=== PATIENT | male | born 1980 | race Caucasian/White ===

== ENCOUNTER → 2020-05-16 | Outpatient (CLI) | payer BC ==
[~2020-05-16] VITALS: Ht 172 cm; Wt 117.0 kg
[~2020-05-16] MED LIST: ASPI-999 PO; ASPIRIN 325 MG (5 GR) TABLET ONE; EPTIFIBATIDE BOLUS 20 ML IV ONE; HEParin 1000 UNIT/ML (10ML VIAL) FOR BOLUS ONE; METO-351 PO; NITRO DRIP 25000 MCG/D5W 250 ML IV ONE; PANT40SU PO; REGADENOSON 0.4 MG/5 ML SYR (LEXISCAN) IV ONE; TICAGRELOR 90 MG TABLET (BRILINTA) PO ONE
[2020-05-16] MEDS: CATHETER FLUSH 10 ML SYR IV PRN ×2 (11:10→13:40)
[2020-05-16 13:28] VITALS: BP 128/81
--- NOTE | 2020-05-16 16:02 | Cardiology Stress Test Report ---
Stress Test Report Date of Procedure/Referring: Date of Procedure: May 16, 2020 PCP Kem Jacobo MD Admitting Physician Indications: Chest pain Baseline Heart Rate: 56 Baseline Blood Pressure: Blood Pressure Systolic: 128 Blood Pressure Diastolic: 81 Baseline Vitals Vital Signs Date Time Temp Pulse Resp B/P (MAP) Pulse Ox O2 Delivery O2 Flow Rate FiO2 05/16/20 13:28 56 16 128/81 (97) 98 Room Air Baseline EKG: Baseline EKG: normal sinus rhythm Summary After explaining the procedure to the patient, he signed a consent and then brought to the stress nuclear laboratory. Patient received a resting dose of technetium Myoview then started exercising on standard Daniel protocol. He was able to exercise for a total of 8 minutes on Daniel protocol, 9.5 metastases achieving maximum heart rate of 120 which is 67 percent of maximum expected heart rate minimal nondiagnostic EKG changes. Test was converted to Lexiscan. Patient received 0.4 mg Lexiscan for stress test, ECG, heart rate and blood pressure were monitored continuously. Resting and stress dose of radio tracer were injected, imaging was acquired and reviewed in short axis, horizontal long axis and vertical long axis views. TID: 1.26 SSS: 30 SDS: 25 EF: 60 1. Good exercise tolerance for total of 8 minutes on standard Daniel protocol achieving 67 percent of maximum expected heart rate did not reach his target heart rate test was converted to Lexiscan Myoview stress test 2. Patient tolerated Lexiscan well 3. Reversible ischemia involving the mid to apical anterior wall anterolateral wall and anterior septum and mid to apical inferior wall and true apex 4. Transient ischemic dilatation with a value 1.26 5. Normal left ventricular size with normal contractibility, EF 60 percent KEM JACOBO MD May 16, 2020 16:02
== END ==
LOC: CARD 10:39
PROVIDERS: ATTEND Internal Medicine Cardiovascular Disease
DX: I10 Essential (primary) hypertension (principal); R07.9 Chest pain, unspecified; R06.00 Dyspnea, unspecified
CPT/HCPCS: 78452; 93017; 93306; A9502

== ENCOUNTER 2020-05-18 09:00 | Day surgery (SDC) | payer BC ==
[~2020-05-18] VITALS: Ht 172 cm; Wt 115.7 kg
[2020-05-18] VITALS (13 sets, daily range): BP systolic 102–125; BP diastolic 62–85
[2020-05-18 07:27] LABS: HEMOGLOBIN 15.5 g/dL (13.3-17.7); MEAN PLATELET VOLUME 11.6 fL (9.0-12.2); WHITE BLOOD COUNT 9.5 10^3/uL (4.3-11.0)
[2020-05-18 07:35] LABS: INR 0.9 (0.8-1.4); PROTHROMBIN TIME PATIENT 12.4 SEC (12.2-14.7)
[2020-05-18 07:41] LABS: ALBUMIN 4.5 GM/DL (3.2-4.5); BILIRUBIN,TOTAL 0.8 MG/DL (0.1-1.0); CALCIUM 9.5 MG/DL (8.5-10.1); CREATININE SERUM 1.36 MG/DL (0.60-1.30); POTASSIUM 4.2 MMOL/L (3.6-5.0); TOTAL PROTEIN 8.5 GM/DL (6.4-8.2)
--- NOTE | 2020-05-18 07:43 | Diagnostic Imaging Report ---
INDICATION: Hypertension, chest pain and preop screening. No prior examinations are available for comparison. FINDINGS: The heart size, mediastinal configuration, and pulmonary vascularity are within normal limits. There is no pleural effusion, pneumothorax, or pneumonia. The osseous structures are unremarkable. IMPRESSION: No acute cardiopulmonary abnormality. Dictated by: Dictated on workstation # [id number]
[~2020-05-18 09:00] MED LIST changes: -ASPIRIN 325 MG (5 GR) TABLET ONE; -EPTIFIBATIDE BOLUS 20 ML IV ONE; +HEParin (CATH LAB) 2,000 ML IV ONE; -HEParin 1000 UNIT/ML (10ML VIAL) FOR BOLUS ONE; +LIDOCAINE 1% INJ 20 ML 20 ML VIAL ONE; +MIDAZOLAM 5 MG/5 ML (VERSED) VIAL ONE; -NITRO DRIP 25000 MCG/D5W 250 ML IV ONE; +NS IV 1000 ML 1,000 ML IV SCH; +NS IV 1000 ML 1,000 ML ONE; -REGADENOSON 0.4 MG/5 ML SYR (LEXISCAN) IV ONE; -TICAGRELOR 90 MG TABLET (BRILINTA) PO ONE; +fentaNYL INJECTION 100 MCG/2 ML AMP ONE
--- NOTE | 2020-05-18 10:05 | Cardiac Procedure Note-CS/ASA ---
Pre-Procedure Note Pre-Op Procedure Note H&P Reviewed The H&P was reviewed, patient examined and no changes noted. Date H&P Reviewed: May 18, 2020 Time H&P Reviewed: 09:00 Conscious Sedation Pre-Proced Time 09:00 ASA Score 3 For ASA 3 and 4: Consider anesthesia and medical clearance. Also, for patients with a history of failed moderate sedation consider anesthesia. Airway Lungs Heart ASA score ASA 1: a normal healthy patient ASA 2: a patient with a mild systemic disease (mid diabetes, controlled hypertension, obesity x ASA 3: a patient with a severe systemic disease that limits activity (angina, COPD, prior Myocardial infarction) ASA 4: a patient with an incapacitating disease that is a constant threat to life (CHF, renal failure) ASA 5: a moribund patient not expected to survive 24 hrs. (ruptured aneurysm) ASA 6: a declared brain- patient whose organs are being harvested. For emergent operations, add the letter E after the classification Mallampati Classification Grade 3 Sedation Plan Analgesia, Amnesia, Plan communicated to team members, Discussed options with patient/fam, Discussed risks with patient/fam The patient is an appropriate candidate to undergo the planned procedure, sedation, and anesthesia. The patient immediately re-assessed prior to indication. KEM MARTINEZ MD May 18, 2020 10:05
[2020-05-18] MEDS ORDERED: PATIENT MAY USE OWN MEDS, ALL PO SCH (10:15)
--- NOTE | 2020-05-18 10:20 | NUR ---
arrives to room 510 per bed, accompanied by laborer electroplating RN. AWAKE, PAIN FREE, SPEECH IS CLEAR, REPORTS HE IS WITH 4 KIDS. RIGHT GROIN WITH CLEAN DRY DRESSING OVER CATH SITE. NO DRAINAGE, NO ECCHYMOSIS, NO INDURATION. RIGHT FOOT IS WARM. RIGHT D.P. NOT STRONG BUT PRESENT. VS STABLE. PINK, WARM ET DRY, SINUS BRADYCARDIA. 1030 TELE ON. T WAVE INVERTED ON ROOM AIR. SPO2 IS NOW 100%. RESPS EVEN, UNLABORED, PAIN FREE.
--- NOTE | 2020-05-18 10:20 | Cardiac Cath Report ---
Cardiac Cath Report Physician (s)/[place] Pantograph Machine Operator (s) Physician KEM MARTINEZ MD Pre-Procedure Diagnosis Pre-Procedure Diagnosis: unstable angina Post-Procedure Note Procedure Start Date: May 18, 2020 Name of Procedure: Left heart catheterization Stent to the LAD Findings/Procedure Note PROCEDURE NOTE: 40 years old gentleman with history of hypertension, has been having unstable angina, had abnormal stress test, scheduled for cardiac catheterization possible PTCA. After explaining the procedure to the patient, all pros and cons were explained, all questions were answered. The patient signed the consent and then he was placed on the cardiac catheterization laboratory. Groin was prepped SL fashion local anesthesia was used. Sheath placed in the right femoral artery. Sailaja right and left catheter were used to access the coronary system. Sailaja right catheter was prolapsed of the left ventricle, pressure was measured no left ventricular gram was done. Next Patient was noted to have severe stenosis/subtotal occlusion the proximal LAD. 6000 units of heparin, double bolus Integrilin was done then SL guide was used, BMW wire was advanced in the LAD. Predilatation with 2.5 x 15 mm balloon then deployment of Steffany 2.5 x 18 mm deployed up to 2.71 mm in the proximal LAD across the first diagonal with excellent results. No residual stenosis was noted, distal to the stent there is mild irregularity improved after nitroglycerin intracoronary At the end of the procedure the sheath was removed. Closure device was deployed FINDINGS: Hemodynamics LV 111/12, end-diastolic pressure of 12 Aorta 115/73 mean of 89 ANATOMY: Left Main is trifurcating with no obstructive disease Left Anterior Descending has severe stenosis/subtotal occlusion proximally, successful deployment of Steffany 2.5 x 18 mm expanded to 2.71 mm extending close to the ostium of the LAD with excellent results Ramus intermedius/high obtuse marginal has mild disease nonobstructive disease Left Circumflex is moderate in size with no obstructive disease Right Coronory Artery is dominant artery with no obstructive disease LV Gram was not done, pressure was measured CONCLUSION: 1. Severe stenosis/subtotal occlusion in the proximal LAD was successful stenting using Steffany drug-eluting stent 2.5 x 18 mm expanded to 2.71 mm with excellent results, mild disease beyond the stent improved after nitroglycerin injection 2. Otherwise mild coronary artery disease nonobstructive disease 3. Normal left ventricular end-diastolic pressure DISCUSSION AND RECOMMENDATION: Patient has normal lipids, due to his severe proximal LAD stenosis and decided to proceed with initiating Lipitor in addition he was started with aspirin and Brilinta Anesthesia Type: Conscious Sedation Estimated blood loss (mL): 25 ml Contrast Amount: 73 ml Total Radiation Dose: 1046 mGy Post-Procedure Diagnosis Post-operative diagnosis: Unstable angina Coronary artery disease Hypertension Obesity KEM MARTINEZ MD May 18, 2020 10:19 am
--- NOTE | 2020-05-18 11:10 | NUR ---
VS STABLE. STATES, "NO ALLERGIES".
[2020-05-18] MEDS: CATHETER FLUSH 10 ML SYR IV SCH (14:20)
[2020-05-18] MEDS: NS IV 1000 ML 1,000 ML IV SCH ×2 (14:57→16:20)
--- NOTE | 2020-05-18 15:34 | NUR ---
Pt is Yazdanism. Music Critic provided prayer and Communion.
--- NOTE | 2020-05-18 16:13 | NUR ---
PT REPORTING, "I AM ACTUALLY FEELING BETTER SINCE THE PROCEDURE!" Roxann SALCIDO.
--- NOTE | 2020-05-18 16:29 | NUR ---
REPORT GIVEN TO LUCRECIA LOUIS.
[2020-05-18] MEDS: TICAGRELOR 90 MG TABLET (BRILINTA) PO SCH (21:15)
[2020-05-19] VITALS: BP 136/83
[2020-05-19 03:10] LABS: HEMOGLOBIN 14.1 g/dL (13.3-17.7); MEAN PLATELET VOLUME 10.7 fL (9.0-12.2); WHITE BLOOD COUNT 9.4 10^3/uL (4.3-11.0)
[2020-05-19 03:27] LABS: CHLORIDE 106 MMOL/L (98-107); POTASSIUM 3.9 MMOL/L (3.6-5.0); SODIUM 138 MMOL/L (135-145)
[2020-05-19 03:28] LABS: CALCIUM 9.3 MG/DL (8.5-10.1)
[2020-05-19 03:29] LABS: GLUCOSE 88 MG/DL (70-105)
[2020-05-19 03:30] LABS: CARBON DIOXIDE 21 MMOL/L (21-32)
[2020-05-19 03:32] LABS: CREATININE SERUM 1.22 MG/DL (0.60-1.30); GFR ESTIMATED > 60
[2020-05-19 03:33] LABS: BUN/CREATININE RATIO 16
[2020-05-19 04:45] VITALS: BP 104/66
[2020-05-19] MEDS: NS IV 1000 ML 1,000 ML IV SCH (05:13)
[2020-05-19] MEDS: CATHETER FLUSH 10 ML SYR IV SCH (05:13)
[2020-05-19] MEDS ORDERED: ATOR10TA66 PO (07:41)
[2020-05-19] MEDS ORDERED: TICA90TA PO (07:41)
--- NOTE | 2020-05-19 07:42 | Discharge Inst-Post CATH ---
Discharge Inst-CATH/EP Problems Reviewed?: Yes Post Cardiac Cath/EP D/C Inst Follow Up/Plan Appointment with Dr Jacobo in 2-4 weeks <b>CARDIAC CATH/EP PROCEDURE DISCHARGE INSTRUCTIONS</b> ACTIVITY * Go Home directly and rest. * Limit activity of the leg (or wrist if it was used) for 7 days including aerobics, swimming, jogging, bicycling, etc. * Restrict stair-climbing for 7 days if possible, if not, climb up with your non-cath leg, then bring together on the same step. * Avoid lifting, pushing, pulling or excessive movement of the affected extremity for 7 days. * Customary sexual activity may be resumed after 2 days-use caution not to use a position that strains or causes pain to the affected extremity. * No driving for 24 hours. * NO SMOKING. * Avoid straining for bowel movements for 7 days. * Gentle walking on level ground is allowed. * Returning to work will depend on the type of procedure and the results. Your doctor will discuss this with you. CALL YOUR DOCTOR FOR ANY OF THE FOLLOWING: *If bleeding from the puncture site occurs- Apply gentle pressure to site with clean cloth and call your doctor or EMS. * If a knot or lump forms under the skin, increases in size, or causes pain. * If bruising appears to be worsening or moving further down your leg instead of disappearing. * Temperature above 101 F. CARE OF YOUR GROIN INCISION; * Bruising or purple discoloration of the skin near the puncture site is common. * You may shower only, no bathtub bathing for 5 days. Be careful to avoid slipping as your leg may feel stiff. * If a closure device was used on your femoral artery, please see the attached guide regarding care of the device and your leg. * Leave dressing on FOR 24 hours. CARE OF YOUR WRIST INCISION; * Bruising or purple discoloration of the skin near the puncture site is common. * You may shower. * DO NOT submerge wrist. * Leave dressing on FOR 24 hours. KEM JACOBO MD May 19, 2020 07:42
[2020-05-19] MEDS: TICAGRELOR 90 MG TABLET (BRILINTA) PO SCH (08:10)
[2020-05-19 08:20] VITALS: BP 106/64
--- NOTE | 2020-05-19 08:23 | NUR ---
RESTING IN BED, RIGHT GROIN DRESSING DRY AND INTACT, NO HEMATOMA, DENIES CHEST PAIN OR SOB, APPETITE GOOD, CALL LIGHT WITHIN REACH
[2020-05-19] MEDS ORDERED: ASPIRIN E.C. 81 MG (ECOTRIN) TAB PO SCH (09:00)
[2020-05-19] MEDS ORDERED: NON-FORMULARY MEDICATION 1 EA EA (Pantoprazole Sodium (Protonix) 40 MG) PO SCH (09:00)
[2020-05-19] MEDS ORDERED: PANTOPRAZOLE 40 MG (PROTONIX) TAB PO SCH (09:00)
[2020-05-19 09:30] VITALS: BP 106/64
--- NOTE | 2020-05-19 09:44 | Cardiology Progress Note ---
Subjective Date Seen by Provider: May 19, 2020 Time Seen by Provider: 09:43 Subjective/Events-last exam Patient is laying down in bed, feeling better. Groin is healing well Review of Systems General: No Chills, No Night Sweats, No Fatigue, No Malaise, No Appetite, No Other HEENT: No Head Aches, No Visual Changes, No Eye Pain, No Ear Pain, No Dysphasia, No Sinus Congestion, No Post Nasal Drip, No Sore Throat, No Other Pulmonary: No Dyspnea, No Cough, No Pleuritic Chest Pain, No Other Cardiovascular: No: Chest Pain, Palpitations, Orthopnea, Paroxysmal Noc. Dyspnea, Edema, Lt Headedness, Other Objective-Cardiology Exam Last Set of Vital Signs Vital Signs 05/19/20 05/19/20 08:20 08:21 Temp 35.8 Pulse 58 Resp 18 B/P (MAP) 106/64 (78) Pulse Ox 96 O2 Delivery Room Air Capillary Refill : Less Than 3 Seconds I&O Intake and Output 05/18/20 23:59 Intake Total 2460 ml Output Total 475 ml Balance 1985 ml Intake Oral 1450 ml IV Total 1010 ml Output Urine Total 475 ml # Voids 4 General: Alert, Oriented X3, Cooperative HEENT: Atraumatic, PERRLA Neck: Supple, No JVD, No Thyromegaly Lungs: Clear to Auscultation, Normal Air Movement Heart: Regular Rate, Normal S1, Normal S2, No Murmurs Abdomen: Normal Bowel Sounds, Soft, No Tenderness, No Hepatosplenomegaly, No Masses Extremities: No Clubbing, No Cyanosis, No Edema, Normal Pulses, No Tenderness/Swelling Skin: No Rashes, No Breakdown, No Significant Lesion Neuro: Normal Gait, Normal Speech, Strength at 5/5 X4 Ext, Normal Tone, Sensation Intact Psych/Mental Status: Mental Status NL, Mood NL Results Lab Laboratory Tests 05/19/20 02:35 A/P-Cardiology Admission Diagnosis Coronary artery disease Unstable angina Hypertension Hyperlipidemia Assessment/Plan Coronary artery disease, status post stenting to the LAD using 2.5 x 18 mm Steffany drug-eluting stent expanded to 2.71 and the proximal LAD with excellent results, mild disease otherwise Unstable angina, reporting improvement. Continue to monitor Hypertension, good control on metoprolol. Continue to monitor Hyperlipidemia, educated in length about diet. Started on Lipitor 10 mg daily and will monitor tolerance and response KEM MARTINEZ MD May 19, 2020 9:44 am
== END 2020-05-19 09:30 | disposition home or self-care (01) ==
LOC: CATH 09:00 → CSD 14:43 → CATH 05-19 09:30
PROVIDERS: ATTEND Internal Medicine Cardiovascular Disease
DX: I25.110 Atherosclerotic heart disease of native coronary artery with unstable angina pectoris (principal); I10 Essential (primary) hypertension; E78.5 Hyperlipidemia, unspecified; E66.9 Obesity, unspecified; Z79.82 Long term (current) use of aspirin; Z79.899 Other long term (current) drug therapy; Z68.39 Body mass index [BMI] 39.0-39.9, adult; Z11.2 Encounter for screening for other bacterial diseases
CPT/HCPCS: 71045; 80048; 80053; 80061; 85027 ×2; 85347; 85610; 85730; 87081; 93005; 93458; C1725; C1760; C1769; C1874; C1887; C1894; C9600; 36415

== ENCOUNTER → 2022-07-16 | Outpatient (CLI) | payer BC ==
[~2022-07-16] VITALS: Ht 172 cm; Wt 113.0 kg
[~2022-07-16] MED LIST changes: +ATOR10TA66 PO; +CATHETER FLUSH 10 ML SYR IVP PRN; -HEParin (CATH LAB) 2,000 ML IV ONE; -LIDOCAINE 1% INJ 20 ML 20 ML VIAL ONE; -MIDAZOLAM 5 MG/5 ML (VERSED) VIAL ONE; -NS IV 1000 ML 1,000 ML IV SCH; -NS IV 1000 ML 1,000 ML ONE; +TICA90TA PO; -fentaNYL INJECTION 100 MCG/2 ML AMP ONE
[2022-07-16 13:01] VITALS: BP 119/81
--- NOTE | 2022-07-16 14:54 | Cardiology Stress Test Report ---
Stress Test Report Date of Procedure/Referring: Date of Procedure: Jul 16, 2022 PCP No,Local Physician Admitting Physician Admitting Physician: Attending Physician: Kem Jacobo MD Baseline Heart Rate: 60 Baseline Blood Pressure: Blood Pressure Systolic: 119 Blood Pressure Diastolic: 81 Vital Signs Date Time Temp Pulse Resp B/P (MAP) Pulse Ox O2 Delivery O2 Flow Rate FiO2 07/16/22 13:01 60 119/81 (94) 97 Baseline Vital Signs Vital Signs Date Time Temp Pulse Resp B/P (MAP) Pulse Ox O2 Delivery O2 Flow Rate FiO2 07/16/22 13:01 60 119/81 (94) 97 Baseline EKG: Baseline EKG: NSR Summary: After explaining the procedure and details to the patient, he signed the consent and was brought to the stress nuclear laboratory. Patient exercised on standard Daniel protocol, EKG, heart rate and blood pressure were monitored continuously, resting and stress doses of radio tracer were injected, imaging was acquired and reviewed in the short axis, horizontal long axis and vertical long axis views Patient was able to exercise for a total of 11 minutes on Daniel protocol, METs 12.4 Maximum heart rate 152 Maximum blood pressure 163/85 Stress EKG, Minimal nondiagnostic changes Recovery EKG, Return to baseline TID: 0.81 SSS: 4 SDS: 1 EF: 81 Conclusion: 1. Fair exercise tolerance for a total of 11 minutes on standard Daniel protocol, 24.4 METS achieving 86% of maximum expected heart rate 2. Appropriate heart rate and blood pressure response to exercise return to baseline during recovery 3. Nondiagnostic EKG changes with exercise return to baseline during recovery 4. No significant ischemia or infarction noted on SPECT images 5. Normal left ventricular size with ejection fraction 81% KEM JACOBO MD Jul 16, 2022 14:54
== END ==
LOC: CARD 11:29
PROVIDERS: ATTEND Internal Medicine Cardiovascular Disease
DX: I10 Essential (primary) hypertension (principal)
CPT/HCPCS: 78452; 93017; A9502

== ENCOUNTER 2022-11-30 17:48 | Emergency (ER) | payer BC, OTHER ==
[~2022-11-30] VITALS: Ht 170 cm; Wt 106.5 kg
[~2022-11-30 17:48] MED LIST changes: -CATHETER FLUSH 10 ML SYR IVP PRN
--- NOTE | 2022-11-30 18:05 | ED Cough/URI ---
General Stated Complaint: COUGH/CONGESTION Source: patient History of Present Illness Date Seen by Provider: November 30, 2022 Time Seen by Provider: 17:57 Initial Comments PT ARRIVES VIA POV FROM HOME STATES HE HAS BEEN SICK FOR A MONTH WITH: -OCCASIONALLY PRODUCTIVE COUGH--CLEAR THICK MUCOUS -CHEST CONGESTION -FEVER UP TO 100.3, BUT NO FEVER RECENTLY -FEELS LIKE HIS ESOPHAGUS IS ON FIRE -SHORTNESS OF BREATH DUE TO COUGHING, NOT SHORT OF BREATH OTHERWISE STATES HE CAN'T SLEEP DUE TO SYMPTOMS, STATES HE "WAKES UP CHOKING" AND HAS "COUGHING FITS" AND CAN'T SLEEP. NO SWELLING IN LEGS/FEET OR PAIN IN CALVES ALL SYMPTOMS MOSTLY AT NIGHT, WHEN HE IS LAYING DOWN. SYMPTOMS IMPROVE WHEN HE IS SITTING UP. PT WENT TO [facility] THE SECOND WEEK OF OCTOBER, AND WAS GIVEN AN UNKNOWN ANTIBIOTIC X 10 DAYS SYMPTOMS GOT BETTER, THEN RETURNED AFTER ANTIBIOTICS WERE FINISHED, SO HE WENT BACK TO [facility] AND HAD A CXR AND WAS TOLD HE HAD BRONCHITIS AND WAS PRESCRIBED AN INHALER AND STEROIDS. NO IMPROVEMENT SYMPTOMS ARE NO DIFFERENT TODAY IN ANY WAY HAS NOT TAKEN ANY MEDICATIONS SPECIFICALLY FOR COUGH HE HAS NOT ATTEMPTED TO CONTACT DR. JACKSON, HIS PCP AT ANY TIME FOR THIS PROBLEM STATES HE HAS NOT SEEN HER "IN A LONG TIME" PT HAS HISTORY OF CAD WITH STENT--ON ASPIRIN, HTN--ON METOPROLOL, HYPERLIPIDEMIA, GERD SYMPTOMS -TAKES PANTOPRAZOLE--HAS NOT HAD EGD, NIDDM--WAS ON OZEMPIC BUT NOT TAKING IT--PRESCRIBED IN JUNE 2022. NOT TAKEN IT SINCE THEN. HE HAS ALSO BEEN PRESCRIBED MOUNJARO LAST FEBRUARY/2021--HE IS NO LONGER TAKING THAT EITHER. HE OCCASIONALLY CHECKS HIS BLOOD SUGAR--WAS 130'S THE LAST TIME HE CHECKED IT PT HAS NOT SMOKED OR VAPED--OTHER THAN SMOKING IN COLLEGE, OCCASIONAL ALCOHOL USE, THC IN COLLEGE--NONE SINCE PT HAS HAD COVID VACCINE X 3, NO FLU VACCINE. PCP: DR. JACKSON--HAS NOT SEEN IN A LONG TIME SENIOR PLANNER: DR. MARTINEZ--SEEN SEVERAL MONTHS AGO Allergies and Home Medications Allergies Coded Allergies: No Known Allergies (Verified Allergy, Unknown, 05/18/20) Patient Home Medication List Home Medication List Reviewed: Yes Aspirin (Aspirin) 81 Mg Tab.chew, 81 MG PO, (Reported) Entered as Reported by: RAY LOPEZ on 05/18/20 07 Atorvastatin Calcium (Atorvastatin Calcium) 10 Mg Tablet, 10 MG PO HS Prescribed by: KEM MARTINEZ on 05/19/20 07 Metoprolol Succinate (Toprol Xl) 25 Mg Tab.er.24h, 25 MG PO DAILY, (Reported) Entered as Reported by: RAY LOPEZ on 05/18/20 07 Pantoprazole Sodium (Protonix) 40 Mg Granpkt.dr, 40 MG PO DAILY, (Reported) Entered as Reported by: RAY LOPEZ on 05/18/20 07 Sucralfate (Carafate) 1 Gram Tablet, 1 GM PO QID Prescribed by: DYLAN SOTO on 11/30/221854 Ticagrelor (Brilinta) 90 Mg Tablet, 90 MG PO BID Prescribed by: KEM MARTINEZ on 05/19/20 07 Review of Systems Review of Systems Constitutional: see HPI EENTM: no symptoms reported Respiratory: see HPI Cardiovascular: see HPI Gastrointestinal: see HPI Genitourinary: no symptoms reported Musculoskeletal: no symptoms reported Skin: no symptoms reported Psychiatric/Neurological: Anxiety Hematologic/Lymphatic: No Symptoms Reported Immunological/Allergic: no symptoms reported Past Yvgtzco-Coxrnu-Sdjtay Hx Patient Social History Tobacco Use?: Yes (IN COLLEGE) Tobacco type used: Cigarettes Smoking Status: Former Smoker Use of E-Cig and/or Vaping dev: No Substance use?: Yes Substance type: Marijuana Additional substance use comme: IN COLLEGE Alcohol Use?: Yes (WEEKENDS) Alcohol Frequency: Several times a month Immunizations Up To Date Tetanus Booster (TDap): Unknown Past Medical History Surgeries: Yes Appendectomy, Cardiac, Coronary Stent Respiratory: No Currently Using CPAP: No Currently Using BIPAP: No Cardiac: Yes Coronary Artery Disease, High Cholesterol, Hypertension Neurological: No Genitourinary: No Gastrointestinal: Yes Gastroesophageal Reflux Musculoskeletal: No Endocrine: Yes Diabetes, Non-Insulin dep HEENT: No Cancer: No Did You Recieve Any Treatments: No Psychosocial: No Integumentary: No Blood Disorders: No Adverse Reaction/Blood Tranf: No Family Medical History CARDIAC CATH 05/18/[address] MARTINEZ: CONCLUSION: 1. Severe stenosis/subtotal occlusion in the proximal LAD was successful stenting using Steffany drug-eluting stent 2.5 x 18 mm expanded to 2.71 mm with excellent results, mild disease beyond the stent improved after nitroglycerin injection 2. Otherwise mild coronary artery disease nonobstructive disease 3. Normal left ventricular end-diastolic pressure DISCUSSION AND RECOMMENDATION: Patient has normal lipids, due to his severe proximal LAD stenosis and decided to proceed with initiating Lipitor in addition he was started with aspirin and Brilinta Physical Exam Vital Signs - First Documented 11/30/22 17:56 Temp 36.6 Pulse 82 Resp 18 B/P (MAP) 121/92 (102) Pulse Ox 96 Capillary Refill : Height: '" Weight: lbs. oz. 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, no motor/sensory deficits, alert, oriented x 3, other (ANXIOUS) Skin: normal color, warm/dry; No rash Progress/Results/Core Measures Suspected Sepsis SIRS Temperature: Pulse: Respiratory Rate: Laboratory Tests 11/30/22 18:11: White Blood Count 14.0H Blood Pressure / Mean: Laboratory Tests 11/30/22 18:11: Creatinine 1.19, Platelet Count 220, Total Bilirubin 0.8 Results/Orders Lab Results Laboratory Tests Test 11/30/22 18:11 Range/Units White Blood Count 14.0 H 4.3-11.0 10^3/uL Red Blood Count 5.32 4.30-5.52 10^6/uL Hemoglobin 14.3 13.3-17.7 g/dL Hematocrit 43 40-54 % Mean Corpuscular Volume 81 80-99 fL Mean Corpuscular Hemoglobin 27 25-34 pg Mean Corpuscular Hemoglobin Concent 33 32-36 g/dL Red Cell Distribution Width 13.4 10.0-14.5 % Platelet Count 220 130-400 10^3/uL Mean Platelet Volume 9.7 9.0-12.2 fL Immature Granulocyte % (Auto) 1 % Neutrophils (%) (Auto) 68 42-75 % Lymphocytes (%) (Auto) 23 12-44 % Monocytes (%) (Auto) 6 0-12 % Eosinophils (%) (Auto) 1 0-10 % Basophils (%) (Auto) 1 0-10 % Neutrophils # (Auto) 9.6 H 1.8-7.8 10^3/uL Lymphocytes # (Auto) 3.3 1.0-4.0 10^3/uL Monocytes # (Auto) 0.9 0.0-1.0 10^3/uL Eosinophils # (Auto) 0.1 0.0-0.3 10^3/uL Basophils # (Auto) 0.1 0.0-0.1 10^3/uL Immature Granulocyte # (Auto) 0.1 0.0-0.1 10^3/uL Neutrophils % (Manual) 63 % Lymphocytes % (Manual) 26 % Monocytes % (Manual) 7 % Eosinophils % (Manual) 3 % Basophils % (Manual) 0 % Band Neutrophils 1 % Blood Morphology Comment NORMAL Sodium Level 138 135-145 MMOL/L Potassium Level 4.1 3.6-5.0 MMOL/L Chloride Level 103 98-107 MMOL/L Carbon Dioxide Level 23 21-32 MMOL/L Anion Gap 12 5-14 MMOL/L Blood Urea Nitrogen 19 H 7-18 MG/DL Creatinine 1.19 0.60-1.30 MG/DL Estimat Glomerular Filtration Rate 77 BUN/Creatinine Ratio 16 Glucose Level 117 H 70-105 MG/DL Calcium Level 9.3 8.5-10.1 MG/DL Corrected Calcium 9.2 8.5-10.1 MG/DL Magnesium Level 1.7 1.6-2.4 MG/DL Total Bilirubin 0.8 0.1-1.0 MG/DL Aspartate Amino Transf (AST/SGOT) 13 5-34 U/L Alanine Aminotransferase (ALT/SGPT) 12 0-55 U/L Alkaline Phosphatase 63 40-136 U/L Troponin I < 0.028 <0.028 NG/ML B-Type Natriuretic Peptide 14.0 <100.0 PG/ML Total Protein 7.3 6.4-8.2 GM/DL Albumin 4.1 3.2-4.5 GM/DL Amylase Level 53 25-125 U/L Lipase 23 8-78 U/L Influenza Type A (RT-PCR) Not Detected Not Detecte Influenza Type B (RT-PCR) Not Detected Not Detecte SARS-CoV-2 RNA (RT-PCR) Not Detected Not Detecte My Orders Orders - DYLAN SOTO DO Covid 19 Inhouse Test (11/30/22 17:57) Influenza A And B By Pcr (11/30/22 17:57) Isolation Central Supply Req (11/30/22 17:57) Ed Iv/Invasive Line Start (11/30/22 18:03) Monitor-Rhythm Ecg Trace Only (11/30/22 18:03) Chest Pa/Lat (2 View) (11/30/22 18:03) Bnp Jania (11/30/22 18:03) Cbc With Automated Diff (11/30/22 18:03) Comprehensive Metabolic Panel (11/30/22 18:03) Magnesium (11/30/22 18:03) Ekg Tracing (11/30/22 18:05) Amylase (11/30/22 18:05) Lipase (11/30/22 18:05) Troponin I [place] (11/30/22 18:05) Manual Differential (11/30/22 18:11) Vital Signs/I&O 11/30/22 17:56 Temp 36.6 Pulse 82 Resp 18 B/P (MAP) 121/92 (102) Pulse Ox 96 Capillary Refill : Progress Note : Progress Note COVID AND FLU TESTING DONE CBC, CMP, TROPONIN, BNP ORDERED, WELL CXR AND EKG REVIEWED PRIOR RECORDS--ONLY VISIT IS FOR OUTPATIENT CARDIAC CATH 05/18/2020. PT IS ASYMPTOMATIC DURING ER STAY NO COUGH NO DYSPNEA NO HYPOXIA NO FEVER NO CHEST PAIN VITALS STABLE DISCUSSED ANTICIPATED COURSE, SYMPTOMATIC TREATMENT, MEDICATIONS, NEED FOR FOLLOW UP--REFERRED TO DR. MELVIN FOR POSSIBLE EGD AND ADVISED TO FOLLOW UP WITH DR. JACKSON FOR ROUTINE MEDICAL CARE, AND RETURN PRECAUTIONS. ECG Initial ECG Impression Date: November 30, 2022 Initial ECG Impression Time: 18:21 Initial ECG Rate: 83 Initial ECG Rhythm: Normal Sinus Initial ECG Intervals: Normal Initial ECG Impression: Normal Initial ECG Comparisson: No Previous ECG Available Comment INTERPRETED BY ME Diagnostic Imaging Comments CXR--PER RADIOLOGIST REPORT AT 1826 FINDINGS: The lungs appear clear without focal airspace opacities or consolidation. There are no findings of an effusion. There is no evidence of a pneumothorax. Heart size and mediastinal contours appear appropriate. Pulmonary vascularity appears within normal limits. There is no acute or suspicious osseous abnormality demonstrated. IMPRESSION: No radiographic evidence of an acute cardiopulmonary process. Reviewed: Reviewed by Me Departure Impression Primary Impression: GERD SYMPTOMS Disposition: HOME, SELF-CARE Condition: Stable Departure-Patient Inst. Decision time for Depature: 18:52 Referrals: MOHAN MELVIN JACQUELINE S DO (PCP/Family) Primary Care Physician Patient Instructions: Acid Reflux and GERD in Adults (DC) Add. Discharge Instructions: INCREASE YOUR PANTOPRAZOLE ( GERD MEDICATION) TO TWICE A DAY SLEEP WITH HEAD OF BED ELEVATED 30-45 DEGREES CONTINUE YOUR OTHER MEDICATIONS PRESCRIBED FOLLOW UP WITH DR. MELVIN, GENERAL SURGEON, FOR POSSIBLE EGD. CALL IN THE MORNING TO SCHEDULE AN APPOINTMENT FOLLOW UP WITH DR. JACKSON FOR ROUTINE MEDICAL CARE--CALL IN THE MORNING TO SCHEDULE AN APPOINTMENT Scripts Sucralfate (Carafate) 1 Gram Tablet 1 GM PO QID, #60 TAB Prov: DYLAN SOTO DO 11/30/22 DYLAN SOTO DO November 30, 2022 18:05
[2022-11-30 18:18] LABS: BASOPHILS # (AUTO) 0.1 10^3/uL (0.0-0.1); BASOPHILS % (AUTO) 1 % (0-10); EOSINOPHILS # (AUTO) 0.1 10^3/uL (0.0-0.3); EOSINOPHILS % (AUTO) 1 % (0-10); HEMATOCRIT 43 % (40-54); HEMOGLOBIN 14.3 g/dL (13.3-17.7); LYMPHOCYTES # (AUTO) 3.3 10^3/uL (1.0-4.0); LYMPHOCYTES % (AUTO) 23 % (12-44); MEAN CORPUSCULAR HEMOGLOBIN 27 pg (25-34); MEAN CORPUSCULAR HGB CONC 33 g/dL (32-36); MEAN CORPUSCULAR VOLUME 81 fL (80-99); MEAN PLATELET VOLUME 9.7 fL (9.0-12.2); MONOCYTES # (AUTO) 0.9 10^3/uL (0.0-1.0); MONOCYTES % (AUTO) 6 % (0-12); NEUTROPHILS # (AUTO) 9.6 10^3/uL (1.8-7.8); NEUTROPHILS % (AUTO) 68 % (42-75); PLATELET COUNT 220 10^3/uL (130-400)
--- NOTE | 2022-11-30 18:24 | Diagnostic Imaging Report ---
INDICATION: Cough and fever. COMPARISON: None available. FINDINGS: The lungs appear clear without focal airspace opacities or consolidation. There are no findings of an effusion. There is no evidence of a pneumothorax. Heart size and mediastinal contours appear appropriate. Pulmonary vascularity appears within normal limits. There is no acute or suspicious osseous abnormality demonstrated. IMPRESSION: No radiographic evidence of an acute cardiopulmonary process. Dictated by: Dictated on workstation # [id number]
[2022-11-30 18:33] LABS: ALBUMIN 4.1 GM/DL (3.2-4.5)
[2022-11-30 18:34] LABS: CHLORIDE 103 MMOL/L (98-107); POTASSIUM 4.1 MMOL/L (3.6-5.0); SODIUM 138 MMOL/L (135-145)
[2022-11-30 18:35] LABS: AMYLASE 53 U/L (25-125); CALCIUM 9.3 MG/DL (8.5-10.1)
[2022-11-30 18:36] LABS: BAND NEUTROPHILS 1 %; BASOPHILS % (MANUAL) 0 %; EOSINOPHILS % (MANUAL) 3 %; GLUCOSE 117 MG/DL (70-105); LYMPHOCYTES % (MANUAL) 26 %; MONOCYTES % (MANUAL) 7 %; NEUTROPHILS % (MANUAL) 63 %; TOTAL PROTEIN 7.3 GM/DL (6.4-8.2)
[2022-11-30 18:37] LABS: CARBON DIOXIDE 23 MMOL/L (21-32); RBC MORPH NORMAL
[2022-11-30 18:38] LABS: BILIRUBIN,TOTAL 0.8 MG/DL (0.1-1.0)
[2022-11-30 18:39] LABS: ALKALINE PHOSPHATASE 63 U/L (40-136)
[2022-11-30 18:40] LABS: CREATININE SERUM 1.19 MG/DL (0.60-1.30); GFR ESTIMATED 77
[2022-11-30 18:41] LABS: BUN/CREATININE RATIO 16
[2022-11-30 18:42] LABS: ALANINE AMINOTRANSFERASE 12 U/L (0-55)
[2022-11-30 18:43] LABS: MAGNESIUM 1.7 MG/DL (1.6-2.4)
[2022-11-30 18:44] LABS: LIPASE 23 U/L (8-78)
[2022-11-30] MEDS ORDERED: SUCR1TAB36 PO (18:55)
[2022-11-30 19:05] VITALS: BP 131/90
== END 2022-11-30 19:05 | disposition home or self-care (01) ==
LOC: EDUNIT# 17:48 → ER 17:53
DX: R09.89 Other specified symptoms and signs involving the circulatory and respiratory systems (principal); R05.9 Cough, unspecified; R50.9 Fever, unspecified; I10 Essential (primary) hypertension; E78.5 Hyperlipidemia, unspecified; E11.9 Type 2 diabetes mellitus without complications; I25.10 Atherosclerotic heart disease of native coronary artery without angina pectoris; Z87.891 Personal history of nicotine dependence; Z95.5 Presence of coronary angioplasty implant and graft; Z79.82 Long term (current) use of aspirin; Z79.899 Other long term (current) drug therapy; Z20.822 Contact with and (suspected) exposure to COVID-19
CPT/HCPCS: 36415; 71046; 80053; 82150; 83690; 83735; 83880; 84484; 85007; 85027; 87636; 93005; 93041

== ENCOUNTER 2022-12-03 07:32 | Outpatient (CLI) | payer OTHER ==
[~2022-12-03] VITALS: Ht 172.7 cm; Wt 105.6 kg
[~2022-12-03 07:32] MED LIST changes: +SUCR1TAB36 PO
[2022-12-03] MEDS ORDERED: ATOR10TA66 PO (09:41)
[2022-12-03] MEDS ORDERED: SUCR1TAB PO (09:41)
== END 2022-12-03 09:45 | disposition home or self-care (01) ==
LOC: PREOP 07:32
PROVIDERS: ATTEND Surgery
DX: Z01.818 Encounter for other preprocedural examination (principal)

== ENCOUNTER 2022-12-08 10:37 | Day surgery (SDC) | payer OTHER ==
[~2022-12-08] VITALS: Ht 172 cm; Wt 105.6 kg
[~2022-12-08 10:37] MED LIST changes: +SUCR1TAB PO
[2022-12-08] MEDS ORDERED: LACTATED RINGERS 1,000 ML IV STA (10:38)
[2022-12-08] MEDS ORDERED: HURRICAINE EXT TUBE (BENZOCAINE) XX PRN (10:45)
[2022-12-08 11:00] VITALS: BP 135/88
--- NOTE | 2022-12-08 11:09 | Progress Note-Pre Operative ---
Pre-Operative Progress Note Date of Available H&P: December 02, 2022 Date H&P Reviewed: December 08, 2022 Time H&P Reviewed: 11:08 History & Physical: H&P Reviewed, Patient Examed, No changes noted Pre-Operative Diagnosis: Dysphagia, Epigastric pain MOHAN MELVIN DO December 08, 2022 11:09
[2022-12-08] MEDS ORDERED: PROPOFOL INJECTION 50 ML IV ONE (11:44)
--- NOTE | 2022-12-08 11:57 | Progress Note-Post Operative ---
Post-Operative Progess Note Surgeon (s)/Cargo Checker (s) Surgeon MOHAN MELVIN DO Cargo Checker: none Pre-Operative Diagnosis Dysphagia, Epigastric pain Post-Operative Diagnosis Gastritis Small sliding hiatal hernia Esophageal polyp Procedure & Operative Findings Date of Procedure 12/08/22 Procedure Performed/Findings EGD with biopsy PROCEDURE NOTE: After informed consent was obtained, the patient was brought to the endoscopy suite, placed in bed in left lateral decubitus position. He was administered IV sedation by the WIRELESS SALES CONSULTANT who then monitored vitals the entire time, heart rate, blood pressure and pulse ox and the scope was inserted down the mouth through the esophagus into the stomach. On the way down, noted some mild esophagitis, took a picture, pushed into the stomach, pushed past the antrum into the duodenum. Duodenum looked good. Pulled back and did a biopsy of antrum, then retroflexed the scope, saw very small sliding hiatal hernia, took a picture of this and then pulled the scope into the GE junction and then did a biopsy of the GE junction. Pushed the scope back into the stomach, suctioned all the air out of the stomach. At this point pulled the scope up the esophagus and about alf up saw something that looked like a polyp. I did a biopsy of this. I did not see anything obstructing the esophagus that coud cause his dysphagia. Finally pulled the scope out of the mouth. The patient tolerated the procedure, and he recovered in endoscopy suite. Anesthesia Type IV sedtion by WIRELESS SALES CONSULTANT Estimated Blood Loss Estimated blood loss (mL): scant Specimens/Packing Specimens Removed antral bx Body of stomach bx GE jxn bx Esophageal biopsy MOHAN MELVIN DO December 08, 2022 11:57
--- NOTE | 2022-12-08 11:58 | Endoscopy Discharge Instruct ---
Endo Procedure/Findings Findings 1.: Gastritis 2.: Hiatal Hernia 3.: Other Findings (esophageal polyp) Discharge Instructions - Activity: You might feel a little sleepy until tomorrow. This is due to the medicine you received to relax you. Until tomorrow, you should: NOT drive a car, operate machinery or power tools. NOT drink any alcoholic beverages. NOT make any important decisions or sign importortant papers. Do not return to work until tomorrow, unless otherwise instructed. Resume previous activities tomorrow. Diet: Start by taking liquids. If you tolerate liquids, advance to solid food. Notify Physician - If you experience excessive bleeding, unusual abdominal pain, fever, or chest pain, contact your doctor immediately. Follow-Up: Other Follow up in my office in one week MOHAN MELVIN DO December 08, 2022 11:58
--- NOTE | 2022-12-08 12:11 | Anesthesia-General Post-Op ---
MAC Patient Condition Mental Status/LOC: Same as Preop Cardiovascular: Satisfactory Nausea/Vomiting: Absent Respiratory: Satisfactory Pain: Controlled Complications: Absent Post Op Complications Complications None Follow Up Care/Instructions Patient Instructions None needed. Anesthesiology Discharge Order Discharge Order Patient is doing well, no complaints, stable vital signs, no apparent adverse anesthesia problems. No complications reported per nursing. SHANNON CHAHAL CRNA December 08, 2022 12:11
[2022-12-08 12:15] VITALS: BP 117/69
[2022-12-08 12:20] VITALS: BP 118/73
[2022-12-08 12:40] VITALS: BP 122/71
[2022-12-08 12:55] VITALS: BP 122/71
== END 2022-12-08 12:55 | disposition home or self-care (01) ==
LOC: ENDO 10:37
PROVIDERS: ATTEND Surgery
DX: K29.50 Unspecified chronic gastritis without bleeding (principal); K44.9 Diaphragmatic hernia without obstruction or gangrene; K31.89 Other diseases of stomach and duodenum; K22.81 Esophageal polyp; K22.70 Barrett's esophagus without dysplasia; L85.9 Epidermal thickening, unspecified; E11.9 Type 2 diabetes mellitus without complications; Z87.891 Personal history of nicotine dependence; Z79.85 Long-term (current) use of injectable non-insulin antidiabetic drugs; E66.9 Obesity, unspecified; Z68.35 Body mass index [BMI] 35.0-35.9, adult
CPT/HCPCS: 82947

== ENCOUNTER → 2022-12-19 | Outpatient (CLI) | payer OTHER ==
--- NOTE | 2022-12-19 14:25 | Diagnostic Imaging Report ---
INDICATION: Difficulty swallowing thin liquids. The procedure was performed in conjunction with speech pathology. Video fluoroscopy was performed during the swallowing of barium in multiple consistencies. The patient ingested thin as well as applesauce and cracker consistencies. A total of 0.9 minutes of fluoroscopic time was utilized. Oral phase was unremarkable. There was normal epiglottic tilt and laryngeal elevation. No aspiration or penetration was observed. No significant vallecular or piriform sinus residue was demonstrated. IMPRESSION: Unremarkable modified barium swallow. Dictated by: Dictated on workstation # [id number]
== END ==
LOC: RAD 09:46 → EDSTATUS 10:00
PROVIDERS: ATTEND Surgery
DX: R13.10 Dysphagia, unspecified (principal)
CPT/HCPCS: 74230

== ENCOUNTER → 2023-01-07 | Outpatient (CLI) | payer OTHER ==
[~2023-01-07] MED LIST changes: +BARIUM for suspension 96% w/w (Vanilla Silq Medium Density) PO ONE; +BARIUM for suspension 98% w/w (Vanilla Silq High Density) PO ONE
--- NOTE | 2023-01-07 11:30 | Diagnostic Imaging Report ---
Indication: Food getting stuck in the throat. Patient ingested effervescent crystals as well as thin and thick barium and imaging of the esophagus was performed at multiple obliquities. 45 seconds of fluoroscopic time was utilized. Preliminary radiograph of the chest is unremarkable. Esophagus has a fairly smooth contour. However, there are does appear to be slightly irregular linear accumulation of barium at the level of the mid thoracic esophagus outside the lumen of the esophagus which is indeterminate. This could represent a deep ulceration of the esophagus at this level. No stricture is seen. No discrete mass is identified. No definite gastroesophageal reflux or hiatal hernia was demonstrated. IMPRESSION: There is abnormal linear accumulation of contrast beyond the lumen of the mid thoracic esophagus, concerning for deep ulceration of the esophagus. Correlation with endoscopic findings is recommended. Consideration could be given to performance of a CT chest for further evaluation. No other significant abnormality is seen. Dictated by: Dictated on workstation # [id number]
== END ==
LOC: RAD 09:00
PROVIDERS: ATTEND Surgery
DX: R13.10 Dysphagia, unspecified (principal)
CPT/HCPCS: 74220

== ENCOUNTER → 2023-02-27 | Outpatient (CLI) | payer OTHER ==
[~2023-02-27] MED LIST changes: -BARIUM for suspension 96% w/w (Vanilla Silq Medium Density) PO ONE; -BARIUM for suspension 98% w/w (Vanilla Silq High Density) PO ONE
--- NOTE | 2023-02-27 18:28 | Diagnostic Imaging Report ---
EXAMINATION: Chest 2 view. HISTORY: Cough. COMPARISON: 11/30/2022. FINDINGS: Heart size and pulmonary vasculature are normal. The lungs are clear without consolidation, pleural effusion, or pneumothorax. The osseous structures are intact. There is an esophageal stent overlying the midline chest likely within the mid thoracic esophagus. A left-sided PICC line is present with the tip projecting over the distal SVC. IMPRESSION: No acute radiographic abnormality in the chest. Dictated by: Dictated on workstation # [id number]
== END ==
LOC: RAD 18:04
PROVIDERS: ATTEND Family Medicine
DX: R05.9 Cough, unspecified (principal)
CPT/HCPCS: 71046

== ENCOUNTER 2023-03-17 20:33 | Emergency (ER) | payer OTHER ==
[~2023-03-17] VITALS: Ht 172.7 cm; Wt 87.0 kg
--- NOTE | 2023-03-17 20:52 | ED GI ---
General Chief Complaint: Abdominal/GI Problems Stated Complaint: VOMITING, SOA Source of Information: Patient, Family () Exam Limitations: No Limitations History of Present Illness Date Seen by Provider: Mar 17, 2023 Time Seen by Provider: 20:40 Initial Comments Patient is a 43-year-old male with a history of non-Hodgkin's lymphoma diagnosed at the end of January this year, currently on chemotherapy last round was 6 days ago on . He has had some generalized malaise and fatigue over the last week. Has had some upset stomach and felt a little short of breath. He has a PEG tube and this evening he started vomiting with PEG tube feeds. He states he did have a little vomiting after around noon today. He states now he cannot drink water. He has a history of tracheoesophageal fistula with 2 esophageal stents. He normally can take liquids by mouth. He states he has had some abdominal cramping and pain. He did have a normal bowel movement today but has been fighting constipation. His states that he had pneumonia 2 weeks ago. He is not currently on antibiotics. No difficulty with urination, burning or frequency. He has generalized malaise and he is scared to lay down and sleep tonight that he might aspirate. The last time he took Zofran was around noon today. No reported fevers at home. He is COVID vaccinated x2 only. H/o of cardiac stent x1 with Dr Jacobo. His oncologist locally is Dr Kilpatrick. His PCP is Dr Flores. Timing/Duration: 4-6 Hours Severity/Quality: Severe Location: Generalized Abdomen Radiation: No Radiation Modifying Factors: Worsens With Lying down Associated Symptoms: Nausea/Vomiting, Shortness of Air Allergies and Home Medications Allergies Coded Allergies: No Known Allergies (Verified Allergy, Unknown, 05/18/20) Patient Home Medication List Home Medication List Reviewed: Yes Aspirin (Aspirin) 81 Mg Tab.chew, 81 MG PO DAILY, (Reported) Entered as Reported by: RAY LOPEZ on 05/18/20 0742 Atorvastatin Calcium (Atorvastatin Calcium) 10 Mg Tablet, 10 MG PO HS, (Reported) Entered as Reported by: JOSE A FLORES on 12/03/22 0941 Metoprolol Succinate (Toprol Xl) 25 Mg Tab.er.24h, 25 MG PO DAILY, (Reported) Entered as Reported by: RAY LOPEZ on 05/18/20 0742 Pantoprazole Sodium (Protonix) 40 Mg Granpkt.dr 40 MG PO DAILY, (Reported) Entered as Reported by: RAY LOPEZ on 05/18/20 0742 Sucralfate (Sucralfate) 1 Gram Tablet, 1 GM PO ACHS, (Reported) Entered as Reported by: JOSE A FLORES on 12/03/22 0941 Review of Systems Review of Systems Constitutional: see HPI EENTM: No Symptoms Reported Respiratory: Shortness of Air Cardiovascular: No Symptoms Reported Gastrointestinal: Abdominal Pain, Nausea, Vomiting Genitourinary: No Symptoms Reported Musculoskeletal: no symptoms reported Skin: no symptoms reported Psychiatric/Neurological: Anxiety All Other Systems Reviewed Negative Unless Noted: Yes Past Fydmknh-Fycaiy-Efqiab Hx Patient Social History Tobacco Use?: No Substance use?: No Alcohol Use?: No Pt feels they are or have been: No Immunizations Up To Date Tetanus Booster (TDap): Unknown First/Initial COVID19 Vaccinat: yes Second COVID19 Vaccination Shilo: yes Third COVID19 Vaccination Date: yes Seasonal Allergies Seasonal Allergies: No Past Medical History Surgery/Hospitalization HX: cardiac stent, high cholesterol, htn, lymphonia Surgeries: Yes Appendectomy, Cardiac, Coronary Stent Respiratory: No Currently Using CPAP: No Currently Using BIPAP: No Cardiac: Yes Coronary Artery Disease, High Cholesterol, Hypertension Neurological: No Genitourinary: No Gastrointestinal: Yes (epigastric pain) Gastroesophageal Reflux Musculoskeletal: No Endocrine: Yes (prediabetic) Diabetes, Non-Insulin dep HEENT: No Cancer: No Did You Recieve Any Treatments: No Psychosocial: No Integumentary: No Blood Disorders: No Adverse Reaction/Blood Tranf: No Family Medical History CARDIAC CATH 05/18/[address] JACOBO: CONCLUSION: 1. Severe stenosis/subtotal occlusion in the proximal LAD was successful stenting using Steffany drug-eluting stent 2.5 x 18 mm expanded to 2.71 mm with excellent results, mild disease beyond the stent improved after nitroglycerin injection 2. Otherwise mild coronary artery disease nonobstructive disease 3. Normal left ventricular end-diastolic pressure DISCUSSION AND RECOMMENDATION: Patient has normal lipids, due to his severe proximal LAD stenosis and decided to proceed with initiating Lipitor in addition he was started with aspirin and Brilinta Physical Exam Vital Signs Vital Signs - First Documented 03/17/23 20:39 Temp 36.7 Pulse 87 Resp 16 B/P (MAP) 107/54 (71) Pulse Ox 98 O2 Delivery Room Air Capillary Refill : Height/Weight/BMI Height: '" Weight: lbs. oz. kg; 35.69 BMI Method: General Appearance: WD/WN, no apparent distress HEENT: PERRL/EOMI Neck: normal inspection Respiratory: lungs clear, normal breath sounds, no respiratory distress, no accessory muscle use Cardiovascular: regular rate, rhythm Gastrointestinal: normal bowel sounds, non tender, soft, other (peg tube in anterior abdomen/epigastrum) Extremities: non-tender, normal inspection, no pedal edema Neurologic/Psychiatric: no motor/sensory deficits, alert, oriented x 3, depressed affect Skin: normal color, warm/dry, other (slightly pale) Progress/Results/Core Measures Results/Orders Lab Results Laboratory Tests Test 03/17/23 20:43 03/17/23 21:06 Range/Units White Blood Count 9.7 4.3-11.0 10^3/uL Red Blood Count 4.27 L 4.30-5.52 10^6/uL Hemoglobin 11.4 L 13.3-17.7 g/dL Hematocrit 35 L 40-54 % Mean Corpuscular Volume 82 80-99 fL Mean Corpuscular Hemoglobin 27 25-34 pg Mean Corpuscular Hemoglobin Concent 33 32-36 g/dL Red Cell Distribution Width 16.1 H 10.0-14.5 % Platelet Count 376 130-400 10^3/uL Mean Platelet Volume 10.4 9.0-12.2 fL Immature Granulocyte % (Auto) 1 % Neutrophils (%) (Auto) 88 H 42-75 % Lymphocytes (%) (Auto) 10 L 12-44 % Monocytes (%) (Auto) 1 0-12 % Eosinophils (%) (Auto) 0 0-10 % Basophils (%) (Auto) 0 0-10 % Neutrophils # (Auto) 8.6 H 1.8-7.8 10^3/uL Lymphocytes # (Auto) 1.0 1.0-4.0 10^3/uL Monocytes # (Auto) 0.1 0.0-1.0 10^3/uL Eosinophils # (Auto) 0.0 0.0-0.3 10^3/uL Basophils # (Auto) 0.0 0.0-0.1 10^3/uL Immature Granulocyte # (Auto) 0.1 0.0-0.1 10^3/uL Sodium Level 137 135-145 MMOL/L Potassium Level 3.7 3.6-5.0 MMOL/L Chloride Level 99 98-107 MMOL/L Carbon Dioxide Level 25 21-32 MMOL/L Anion Gap 13 5-14 MMOL/L Blood Urea Nitrogen 29 H 7-18 MG/DL Creatinine 0.95 0.60-1.30 MG/DL Estimat Glomerular Filtration Rate 101 BUN/Creatinine Ratio 31 Glucose Level 108 H 70-105 MG/DL Calcium Level 9.0 8.5-10.1 MG/DL Corrected Calcium 8.8 8.5-10.1 MG/DL Total Bilirubin 0.7 0.1-1.0 MG/DL Aspartate Amino Transf (AST/SGOT) 15 5-34 U/L Alanine Aminotransferase (ALT/SGPT) 29 0-55 U/L Alkaline Phosphatase 63 40-136 U/L Total Protein 7.1 6.4-8.2 GM/DL Albumin 4.2 3.2-4.5 GM/DL Lipase 28 8-78 U/L SARS-CoV-2 RNA (RT-PCR) Negative Not Detecte My Orders Orders - JOESPH MELLO MD Ed Iv/Invasive Line Start (03/17/23 20:48) Cbc With Automated Diff (03/17/23 20:48) Comprehensive Metabolic Panel (03/17/23 20:48) Lipase (03/17/23 20:48) Chest 1 View, Ap/Pa Only (03/17/23 20:48) Ondansetron Injection (Zofran Injectio (03/17/23 21:00) Lactated Ringers (Lr 1000 Ml Iv Solution (03/17/23 21:00) Covid 19 Inhouse Test (03/17/23 20:52) Blood Culture (03/17/23 20:43) Blood Culture (03/17/23 22:02) Medications Given in ED Current Medications Medications Dose Ordered Sig/Daily Route Start Time Stop Time Status Last Admin Dose Admin Ondansetron HCl 8 mg ONCE ONCE IVP 03/17/23 21:00 03/17/23 21:01 DC 03/17/23 21:03 8 MG Vital Signs/I&O 03/17/23 03/17/23 20:39 22:50 Temp 36.7 Pulse 87 66 Resp 16 22 B/P (MAP) 107/54 (71) 108/62 Pulse Ox 98 98 O2 Delivery Room Air Room Air Progress Progress Note : Time: 22:20 Progress Note Patient seen and evaluated by me. Evaluation today includes physical exam, CBC, Chem-12, COVID test, single view chest x-ray. Pertinent physical exam findings well-developed well-nourished male no acute distress. Mildly obese, soft abdomen. PEG tube in place in the epigastrium. Heart is regular, lungs are clear. He does have bowel sounds present without any involuntary guarding or rebound. No significant lower extremity edema. No rashes, the patient does appear slightly pale. His blood pressure is good at 108/62, pulse is regular in the 80s. He is not hypoxic. PICC line in place in the left upper arm. Differential diagnosis based on history and physical exam, gastroenteritis, dehydration, acid reflux chemotherapy side effect Labs independently reviewed and interpreted by me. Patient has a total white blood cell count of 9.7 with 88% segs 10% lymphs. Hemoglobin of 11.4 hematocrit of 35 platelet count of 376. His Chem-12 is grossly normal, his COVID test is negative. His chest x-ray shows no focal consolidations. The patient is treated with IV fluids, lactated Ringer's x1 L. He is also given 8 mg of Zofran. The patient states that he is on an acid worm packer daily. He continues to deny pain. He has had no fever. Low clinical suspicion for any type of infectious process. Strongly suspect this reflux/vomiting is side effects to his chemo. It has been 1 week since chemo. Reassurance is provided. He is no longer as anxious as he was at presentation. He is comfortable with discharged home. Encouraged him to follow-up with Dr. Kilpatrick tomorrow as well as his oncology team at . Patient verbalized understanding of the discharge instruction. All questions are sought and answered. Patient is improved at discharge Diagnostic Imaging Diagonstic Imaging: Xray Plain Films/CT/US/NM/MRI: chest Comments [facility] [place], [place] NAME: SHILPA CASAS REC#: [id number] PT STATUS: REG ER : 1980 PHYSICIAN: JOESPH MELLO MD ADMIT DATE: 03/17/23/ER Signed Date of Exam:03/17/23 CHEST 1 VIEW, AP/PA ONLY CHEST 1 VIEW, AP/PA ONLY INDICATION: h/o of tracheoesophageal fistula; vomiting. COMPARISON: Chest radiograph on 05/18/2020. FINDINGS: Lungs: Normal lung volume. No focal consolidation. Stable pulmonary vasculature. Pleura: No pleural effusion or pneumothorax. Heart and Mediastinum: Cardiomediastinal silhouette and great vessels of the thorax are stable. Left pectoral. Projects over the SVC. Osseous Structures and Soft Tissues: No acute osseous abnormality. Normal soft tissues. IMPRESSION: No focal consolidation or odin pulmonary edema. Dictated by: Dictated on workstation # [id number] Dict: 03/17/232114 Trans: 03/17/232116 [facility] [place] [id number] Interpreted by: RYAN BONILLA DO Electronically signed by: RYAN BONILLA DO 03/17/232116 Departure Impression Primary Impression: Vomiting Qualified Codes: R11.11 - Vomiting without nausea Additional Impression: Non-Hodgkin lymphoma Qualified Codes: C85.90 - Non-Hodgkin lymphoma, unspecified, unspecified site Disposition: 01 HOME, SELF-CARE Condition: Improved Departure-Patient Inst. Decision time for Depature: 22:23 Referrals: EBONY FLORES DO (PCP/Family) Primary Care Physician Patient Instructions: Nausea and vomiting with cancer treatment Add. Discharge Instructions: Try and scale back the amount of fluids and food you eat at a time. Make sure you are taking your nausea medications on a scheduled basis. Please touch base with MARTHA and or Dr. Blanco tomorrow about your vomiting. If you develop any fever over 100.4, worsening pain, rash or any other emergent, concerning symptoms please return to the emergency department for reevaluation. Continue all your routine medications as directed. Copy Copies To 1: EBONY FLORES DO Copies To 2: SHAAN KILPATRICK KATHRYN M MD Mar 17, 2023 20:52
[2023-03-17 20:59] LABS: BASOPHILS % (AUTO) 0 % (0-10); EOSINOPHILS % (AUTO) 0 % (0-10); HEMATOCRIT 35 % (40-54); HEMOGLOBIN 11.4 g/dL (13.3-17.7); LYMPHOCYTES % (AUTO) 10 % (12-44); MEAN CORPUSCULAR HEMOGLOBIN 27 pg (25-34); MEAN CORPUSCULAR HGB CONC 33 g/dL (32-36); MEAN CORPUSCULAR VOLUME 82 fL (80-99); MEAN PLATELET VOLUME 10.4 fL (9.0-12.2); MONOCYTES # (AUTO) 0.1 10^3/uL (0.0-1.0); MONOCYTES % (AUTO) 1 % (0-12); NEUTROPHILS # (AUTO) 8.6 10^3/uL (1.8-7.8); NEUTROPHILS % (AUTO) 88 % (42-75); PLATELET COUNT 376 10^3/uL (130-400); WHITE BLOOD COUNT 9.7 10^3/uL (4.3-11.0)
[2023-03-17] MEDS ORDERED: LACTATED RINGERS 1,000 ML 1,000 ML IV SCH (21:00)
[2023-03-17] MEDS ORDERED: ONDANSETRON INJECTION 4 MG/2 ML (SDV) IVP ONE (21:00)
--- NOTE | 2023-03-17 21:18 | Diagnostic Imaging Report ---
CHEST 1 VIEW, AP/PA ONLY INDICATION: h/o of tracheoesophageal fistula; vomiting. COMPARISON: Chest radiograph on 05/18/2020. FINDINGS: Lungs: Normal lung volume. No focal consolidation. Stable pulmonary vasculature. Pleura: No pleural effusion or pneumothorax. Heart and Mediastinum: Cardiomediastinal silhouette and great vessels of the thorax are stable. Left pectoral. Projects over the SVC. Osseous Structures and Soft Tissues: No acute osseous abnormality. Normal soft tissues. IMPRESSION: No focal consolidation or odin pulmonary edema. Dictated by: Dictated on workstation # [id number]
[2023-03-17 21:24] LABS: ALBUMIN 4.2 GM/DL (3.2-4.5); BILIRUBIN,TOTAL 0.7 MG/DL (0.1-1.0); CREATININE SERUM 0.95 MG/DL (0.60-1.30); POTASSIUM 3.7 MMOL/L (3.6-5.0); TOTAL PROTEIN 7.1 GM/DL (6.4-8.2)
[2023-03-17 22:50] VITALS: BP 108/62
== END 2023-03-17 22:50 | disposition home or self-care (01) ==
LOC: EDUNIT# 20:33 → ER 20:36
DX: R11.2 Nausea with vomiting, unspecified (principal); C85.90 Non-Hodgkin lymphoma, unspecified, unspecified site; E66.9 Obesity, unspecified; Z68.35 Body mass index [BMI] 35.0-35.9, adult; Z79.899 Other long term (current) drug therapy; Z20.822 Contact with and (suspected) exposure to COVID-19
CPT/HCPCS: 36415; 71045; 80053; 83690; 85025; 87040; 87636

== ENCOUNTER 2023-04-11 17:49 | Emergency (ER) | payer OTHER ==
[~2023-04-11] VITALS: Ht 172.7 cm; Wt 82.0 kg
[2023-04-11] MEDS ORDERED: ACETAMINOPHEN 500 MG TABLET PO PRN (18:15)
[2023-04-11] MEDS ORDERED: LACTATED RINGERS 1,000 ML 1,000 ML IV ONE ×3 (18:15→21:30)
[2023-04-11] MEDS ORDERED: CEFEPIME INJECTION 1,000 MG in NS (IVPB) 50 ML 50 ML IV ONE (18:15)
[2023-04-11] MEDS ORDERED: fentaNYL INJECTION 100 MCG/2 ML VIAL IVP STA (18:19)
--- NOTE | 2023-04-11 18:28 | ED General ---
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 HE HAS HAD AN ONGOING COUGH--HE STATES IT HAS BEEN WORSE THE LAST COUPLE OF DAYS HE HAS ONGOING CHEST PAIN AND PAIN WITH BREATHING, WHICH HE STATES IS FROM THE STENTS. HE TAKES OXYCODONE--LAST DOSE WAS THIS MORNING C/O CHEST PAIN AT THIS TIME IS 8/10 NO SHORTNESS OF BREATH PT IS UNAWARE OF FEVER--TEMP IS 38.0=100.4 ON ARRIVAL HERE PT STATES FOR THE LAST COUPLE OF DAYS HE HAS FELT DIZZY, ESPECIALLY ON STANDING FEELS LIKE HIS HEART IS RACING, ESPECIALLY WHEN HE STANDS HE HAS HAD NAUSEA AND DRY HEAVES LAST BM WAS YESTERDAY HE IS STILL URINATING BUT IT IS DARK NO ABDOMINAL PAIN NO HEADACHE OR NECK STIFFNESS PT HAS A FEEDING TUBE ADDITIONALLY, HE HAS HAD CAD WITH STENT X 1 IN 2019 PT IS NOT COVID OR FLU VACCINATED AND HE IS NOT WEARING A MASK--MASK WAS PLACED ON PT ON ARRIVAL PCP: DR. JACKSON CARTOGRAPHY SUPERVISOR: [facility] Allergies and Home Medications Allergies Coded Allergies: No Known Allergies (Verified Allergy, Unknown, 05/18/20) Patient Home Medication List Aspirin (Aspirin) 81 Mg Tab.chew, 81 MG PO DAILY, (Reported) Entered as Reported by: RAY LOPEZ on 05/18/20 0742 Atorvastatin Calcium (Atorvastatin Calcium) 10 Mg Tablet, 10 MG PO HS, (Reported) Entered as Reported by: JOSE A FLORES on 12/03/22 0941 Metoprolol Succinate (Toprol Xl) 25 Mg Tab.er.24h, 25 MG PO DAILY, (Reported) Entered as Reported by: RAY LOPEZ on 05/18/20 0742 Pantoprazole Sodium (Protonix) 40 Mg Michelet.dr, 40 MG PO DAILY, (Reported) Entered as Reported by: RAY LOPEZ on 05/18/20 0742 Sucralfate (Sucralfate) 1 Gram Tablet, 1 GM PO ACHS, (Reported) Entered as Reported by: JOSE A FLORES on 12/03/22 0941 Review of Systems Review of Systems Constitutional: see HPI, dizziness, malaise, weakness EENTM: no symptoms reported Respiratory: see HPI Cardiovascular: see HPI Gastrointestinal: see HPI Genitourinary: see HPI Musculoskeletal: no symptoms reported Skin: no symptoms reported Psychiatric/Neurological: No Symptoms Reported Hematologic/Lymphatic: See HPI Immunological/Allergic: see HPI Past Cdcvruv-Emvrox-Tlmbzk Hx Immunizations Up To Date Tetanus Booster (TDap): Unknown First/Initial COVID19 Vaccinat: yes Second COVID19 Vaccination Shilo: yes Third COVID19 Vaccination Date: yes Seasonal Allergies Seasonal Allergies: No Past Medical History Surgery/Hospitalization HX: cardiac stent, high cholesterol, htn, lympho Surgeries: Yes Abdominal, Appendectomy, Cardiac, Coronary Stent Respiratory: Yes (LUNG/TRACHEAL STENT) Currently Using CPAP: No Currently Using BIPAP: No Cardiac: Yes Coronary Artery Disease, High Cholesterol, Hypertension Neurological: No Genitourinary: No Gastrointestinal: Yes (FEEDING TUBE; ESOPHAGEAL STENT) Gastroesophageal Reflux Musculoskeletal: No Endocrine: Yes (prediabetic) Diabetes, Non-Insulin dep HEENT: No Cancer: Yes Did You Recieve Any Treatments: Yes What Type of Treatment Did You: Chemotherapy NON-HODGKIN'S LYMPHOMA--TREATED WITH CHEMO Psychosocial: No Integumentary: No Blood Disorders: No Adverse Reaction/Blood Tranf: No Family Medical History SOCIAL HISTORY: - PAST SURGICAL HISTORY: -APPENDECTOMY -STENTS X 2 IN ESOPHAGUS DUE TO FISTULA FROM CANCER -STENT X 1 IN LUNG/TRACHEA DUE TO FISTULA FROM CANCER -FEEDING TUBE -PORT RIGHT CHEST CARDIAC CATH 05/18/[address] MARTINEZ: CONCLUSION: 1. Severe stenosis/subtotal occlusion in the proximal LAD was successful stenting using Steffany drug-eluting stent 2.5 x 18 mm expanded to 2.71 mm with excellent results, mild disease beyond the stent improved after nitroglycerin injection 2. Otherwise mild coronary artery disease nonobstructive disease 3. Normal left ventricular end-diastolic pressure DISCUSSION AND RECOMMENDATION: Patient has normal lipids, due to his severe proximal LAD stenosis and decided to proceed with initiating Lipitor in addition he was started with aspirin and Brilinta Physical Exam Vital Signs Vital Signs - First Documented 04/11/23 18:00 Temp 38.0 Pulse 94 Resp 18 B/P (MAP) 106/69 (81) Pulse Ox 95 Capillary Refill : Height, Weight, BMI Height: '" Weight: lbs. oz. kg; 29.00 BMI Method: General Appearance: WD/WN, Other (SOMEWHAT LETHARGIC, FLAT/DEPRESSED AFFECT. ) Neck: Normal Inspection Respiratory: Normal Breath Sounds, No Accessory Muscle Use, No Respiratory Distress Cardiovascular: Regular Rate, Rhythm, No Edema, No JVD, No Murmur, Normal Peripheral Pulses Gastrointestinal: Normal Bowel Sounds, Non Tender, Soft Back: No CVA Tenderness Extremity: Normal Inspection, No Pedal Edema Neurologic/Psychiatric: Alert, Oriented x3, No Motor/Sensory Deficits, management scientist II- XII Norm as Tested Skin: Warm/Dry, Pallor; No Rash Focused Exam Lactate Level 04/11/23 18:20: Lactic Acid Level 1.55 Lactic Acid Level Laboratory Tests Test 04/11/23 18:20 Lactic Acid Level 1.55 MMOL/L (0.50-2.00) Progress/Results/Core Measures Suspected Sepsis SIRS Temperature: Pulse: Respiratory Rate: Laboratory Tests 04/11/23 18:20: White Blood Count 0.6*L Blood Pressure / Mean: 04/11/23 18:20: Lactic Acid Level 1.55 Laboratory Tests 04/11/23 18:20: Creatinine 0.77, INR Comment 1.0, Platelet Count 109L, Total Bilirubin 1.1H Results/Orders Lab Results Laboratory Tests Test 04/11/23 18:20 04/11/23 19:18 Range/Units White Blood Count 0.6 *L 4.3-11.0 10^3/uL Red Blood Count 3.03 L 4.30-5.52 10^6/uL Hemoglobin 8.4 L 13.3-17.7 g/dL Hematocrit 26 L 40-54 % Mean Corpuscular Volume 85 80-99 fL Mean Corpuscular Hemoglobin 28 25-34 pg Mean Corpuscular Hemoglobin Concent 33 32-36 g/dL Red Cell Distribution Width 19.0 H 10.0-14.5 % Platelet Count 109 L 130-400 10^3/uL Mean Platelet Volume 10.6 9.0-12.2 fL Immature Granulocyte % (Auto) 0 % Neutrophils (%) (Auto) 22 L 42-75 % Lymphocytes (%) (Auto) 40 12-44 % Monocytes (%) (Auto) 33 H 0-12 % Eosinophils (%) (Auto) 2 0-10 % Basophils (%) (Auto) 4 0-10 % Neutrophils # (Auto) 0.1 L 1.8-7.8 10^3/uL Lymphocytes # (Auto) 0.2 L 1.0-4.0 10^3/uL Monocytes # (Auto) 0.2 0.0-1.0 10^3/uL Eosinophils # (Auto) 0.0 0.0-0.3 10^3/uL Basophils # (Auto) 0.0 0.0-0.1 10^3/uL Immature Granulocyte # (Auto) 0.0 0.0-0.1 10^3/uL Neutrophils % (Manual) 18 % Lymphocytes % (Manual) 48 % Monocytes % (Manual) 34 % Eosinophils % (Manual) 0 % Basophils % (Manual) 0 % Band Neutrophils 0 % Polychromasia MODERATE Anisocytosis MARKED Erythrocyte Sedimentation Rate 1 0-15 MM/HR Prothrombin Time 13.3 12.2-14.7 SEC INR Comment 1.0 0.8-1.4 Activated Partial Thromboplast Time 31 24-35 SEC Sodium Level 131 L 135-145 MMOL/L Potassium Level 4.4 3.6-5.0 MMOL/L Chloride Level 97 L 98-107 MMOL/L Carbon Dioxide Level 23 21-32 MMOL/L Anion Gap 11 5-14 MMOL/L Blood Urea Nitrogen 17 7-18 MG/DL Creatinine 0.77 0.60-1.30 MG/DL Estimat Glomerular Filtration Rate 113 BUN/Creatinine Ratio 22 Glucose Level 105 70-105 MG/DL Lactic Acid Level 1.55 0.50-2.00 MMOL/L Calcium Level 8.8 8.5-10.1 MG/DL Corrected Calcium 9.0 8.5-10.1 MG/DL Magnesium Level 1.8 1.6-2.4 MG/DL Total Bilirubin 1.1 H 0.1-1.0 MG/DL Aspartate Amino Transf (AST/SGOT) 11 5-34 U/L Alanine Aminotransferase (ALT/SGPT) 18 0-55 U/L Alkaline Phosphatase 58 40-136 U/L Myoglobin 28.5 10.0-92.0 NG/ML Troponin I < 0.028 <0.028 NG/ML C-Reactive Protein High Sensitivity 15.28 H 0.00-0.50 MG/DL B-Type Natriuretic Peptide 19.7 <100.0 PG/ML Total Protein 6.5 6.4-8.2 GM/DL Albumin 3.8 3.2-4.5 GM/DL Lipase 8 8-78 U/L TSH [place] Testing 0.61 0.35-4.94 UIU/ML Influenza Type A (RT-PCR) Not Detected Not Detecte Influenza Type B (RT-PCR) Not Detected Not Detecte SARS-CoV-2 RNA (RT-PCR) Not Detected Not Detecte Urine Color ORANGE Urine Clarity CLEAR Urine pH 8.5 5-9 Urine Specific [place] 1.015 L 1.016-1.022 Urine Protein 2+ H NEGATIVE Urine Glucose (UA) NEGATIVE NEGATIVE Urine Ketones NEGATIVE NEGATIVE Urine Nitrite NEGATIVE NEGATIVE Urine Bilirubin 1+ H NEGATIVE Urine Urobilinogen >=8.0 < = 1.0 MG/DL Urine Leukocyte Esterase NEGATIVE NEGATIVE Urine RBC (Auto) NEGATIVE NEGATIVE Urine RBC NONE /HPF Urine WBC RARE /HPF Urine Squamous Epithelial Cells RARE /HPF Urine Crystals NONE /LPF Urine Bacteria NEGATIVE /HPF Urine Casts NONE /LPF Urine Mucus SMALL H /LPF Urine Culture Indicated CULTURE PENDING My Orders Orders - DYLAN SOTO DO Ed Iv/Invasive Line Start (04/11/23 18:01) Ekg Tracing (04/11/23 18:01) O2 (04/11/23 18:01) Monitor-Rhythm Ecg Trace Only (04/11/23 18:01) Chest 1 View, Ap/Pa Only (04/11/23 18:01) Bnp [place] (04/11/23 18:01) Cbc With Automated Diff (04/11/23 18:01) Comprehensive Metabolic Panel (04/11/23 18:01) Hs C Reactive Protein (04/11/23 18:01) Lactic Acid Analyzer (04/11/23 18:01) Lipase (04/11/23 18:01) Magnesium (04/11/23 18:01) Protime With Inr (04/11/23 18:01) Partial Thromboplastin Time (04/11/23 18:01) Thyroid Analyzer (04/11/23 18:01) Blood Culture (04/11/23 18:01) Erythrocyte Sedimentation Rate (04/11/23 18:01) Myoglobin Serum (04/11/23 18:01) Troponin I [place] (04/11/23 18:01) Covid 19 Inhouse Test (04/11/23 18:01) Influenza A And B By Pcr (04/11/23 18:01) Sputum Culture (04/11/23 18:05) Urinalysis (04/11/23 18:05) Urine Culture (04/11/23 18:05) Acetaminophen Tablet (Acetaminophen Ta (04/11/23 18:15) Ed Iv/Invasive Line Start (04/11/23 18:05) Vital Signs Adult Sepsis Patie Q15M (04/11/23 18:05) O2 (04/11/23 18:05) Remove Rings In Anticipation O (04/11/23 18:05) Lactated Ringers 1,000 Ml (Lactated Ring (04/11/23 18:15) Cefepime Injection (Cefepime Injection) (04/11/23 18:15) Aspirin Chewable Tablet (Aspirin Chewabl (04/11/23 18:30) Acetaminophen Tablet (Acetaminophen Ta (04/11/23 18:30) Ibuprofen Tablet (Ibuprofen Tablet) (04/11/23 18:30) Ondansetron Injection (Ondansetron Inj (04/11/23 18:30) Fentanyl Injection (Fentanyl Injection (04/11/23 18:19) Acetaminophen Oral Solution (Acetaminoph (04/11/23 18:30) Ibuprofen Oral Suspension (Ibuprofen Ora (04/11/23 18:30) Manual Differential (04/11/23 18:20) Ct Helga Chest/Noang Abd-Pelv W (04/11/23 19:07) Iohexol Injection (Omnipaque 350 Mg/Ml 1 (04/11/23 19:15) Received Contrast (Hold Metformin- Contr (04/11/23 19:15) Ns (Ivpb) 100 Ml (Sodium Chloride 0.9% 1 (04/11/23 19:15) Ed Iv/Invasive Line Start (04/11/23 19:13) Lactated Ringers 1,000 Ml (Lactated Ring (04/11/23 19:15) Ns Iv 1000 Ml (Ns Iv 1000 Ml) (04/11/23 19:15) Fentanyl Injection (Fentanyl Injection (04/11/23 19:45) Fentanyl Injection (Fentanyl Injection (04/11/23 21:00) Ed Iv/Invasive Line Start (04/11/23 21:16) Lactated Ringers 1,000 Ml (Lactated Ring (04/11/23 21:30) Ondansetron Injection (Ondansetron Inj (04/11/23 23:15) Fentanyl Injection (Fentanyl Injection (04/11/23 23:15) Ed Iv/Invasive Line Start (04/12/23 00:06) Ns Iv 1000 Ml (Ns Iv 1000 Ml) (04/12/23 00:15) Medications Given in ED Current Medications Medications Dose Ordered Sig/Daily Route Start Time Stop Time Status Last Admin Dose Admin Acetaminophen 1,000 mg ONCE ONCE PO 04/11/23 18:30 04/11/23 18:31 DC 04/11/23 18:42 1,000 MG Aspirin 324 mg ONCE ONCE PO 04/11/23 18:30 04/11/23 18:31 DC 04/11/23 18:41 324 MG Cefepime HCl 1000 mg/Sodium Chloride 50 ml @ 100 mls/hr ONCE ONCE IV 04/11/23 18:15 04/11/23 18:44 DC 04/11/23 18:43 100 MLS/HR Fentanyl Citrate 50 mcg ONCE ONCE IVP 04/11/23 19:45 04/11/23 19:46 DC 04/11/23 19:53 50 MCG Fentanyl Citrate 50 mcg ONCE ONCE IVP 04/11/23 21:00 04/11/23 21:01 DC 04/11/23 21:29 50 MCG Fentanyl Citrate 50 mcg ONCE ONCE IVP 04/11/23 23:15 04/11/23 23:16 DC 04/11/23 23:09 50 MCG Ibuprofen 800 mg ONCE ONCE PO 04/11/23 18:30 04/11/23 18:31 DC 04/11/23 18:42 800 MG Iohexol 100 ml ONCE ONCE IV 04/11/23 19:15 04/11/23 20:18 DC 04/11/23 19:24 100 ML Lactated Ringer's 1,000 ml @ 0 mls/hr Q0M ONCE IV 04/11/23 18:15 04/11/23 18:16 DC 04/11/23 18:43 999 MLS/HR Lactated Ringer's 1,000 ml @ 0 mls/hr Q0M ONCE IV 04/11/23 19:15 04/11/23 19:16 DC 04/11/23 20:09 999 MLS/HR Lactated Ringer's 1,000 ml @ 0 mls/hr Q0M ONCE IV 04/11/23 21:30 04/11/23 21:31 DC 04/11/23 21:53 250 MLS/HR Ondansetron HCl 4 mg ONCE ONCE IVP 04/11/23 18:30 04/11/23 18:31 DC 04/11/23 18:41 4 MG Ondansetron HCl 8 mg ONCE ONCE IVP 04/11/23 23:15 04/11/23 23:16 DC 04/11/23 23:10 8 MG Sodium Chloride 100 ml ONCE ONCE IV 04/11/23 19:15 04/11/23 20:18 DC 04/11/23 19:24 100 ML Vital Signs/I&O 04/11/23 04/11/23 04/11/23 04/11/23 18:00 18:42 18:42 20:30 Temp 38.0 38.0 38.0 37.3 Pulse 94 Resp 18 B/P (MAP) 106/69 (81) Pulse Ox 95 04/11/23 22:01 Temp 35.9 Capillary Refill : Progress Note : Progress Note PPE WORN SEPSIS PROTOCOL INITIATED GIVEN: -TYLENOL AND MOTRIN -ASPIRIN -FENTANYL FOR PAIN -FLUIDS -ANTIBIOTICS LABS: -CBC WITH WBC 0.6, WITH ANC 0.1, HGB 8.4, PLT 109 -CMP WITH NA 131, K 4.4, BUN 17, CR 0.77, GLU 105 -MG 1.8 -LIPASE NORMAL -LACTIC ACID 1.55 -PT/PTT/INR 13.3/41/1.0 -TROPONIN NEGATIVE -BNP NORMAL -CRP 15.28 EKG IS NORMAL CXR DOES NOT SHOW AN ACUTE PROCESS CT CHEST/ABDOMEN/PELVIS ECG Initial ECG Impression Date: Apr 11, 2023 Initial ECG Impression Time: 18:24 Initial ECG Rate: 91 Initial ECG Rhythm: Normal Sinus Initial ECG Intervals: Normal Initial ECG Impression: Normal Initial ECG Comparisson: Unchanged Comment INTERPRETED BY ME Diagnostic Imaging Comments CXR--PER RADIOLOGIST REPORT AT 1859 FINDINGS: A right-sided port is seen with the tip overlying the mid SVC. The lung volumes are normal. No focal consolidation is seen. No large pleural effusion or pneumothorax is seen. The cardiomediastinal silhouette is normal in size and contour. Esophageal stent is in place. No acute osseous abnormality is seen. IMPRESSION: No acute pleuroparenchymal process. CT CHEST ANGIOGRAM / ABDOMEN-PELVIS--PER RADIOLOGIST REPORT AT 1954 COMPARISON: None. CTA CHEST: No evidence of pulmonary embolus to the subsegmental pulmonary arteries. The heart size is within normal limits. No pericardial effusion is present. Esophageal stent is in place. There is also a stent within the left mainstem bronchus. Inflammation and edema are seen in the posterior mediastinum at the superior aspect of the esophageal stent. Small shoddy lymph nodes are seen in the mediastinum. No pathologically enlarged lymph nodes. Patchy and consolidative opacities are seen in the left lung base. Nodular opacities are seen in the right middle lobe. No pneumothorax is present. No central endobronchial obstructing lesion is identified. There is no pleural effusion. No acute osseous abnormality. CT ABDOMEN/PELVIS: Nonspecific hypoattenuating focus is seen in the spleen measuring 2.7 x 2.4 cm. Second similar area is seen more inferiorly measuring 3.3 x 2.4 cm. The liver, gallbladder, pancreas, adrenal glands and kidneys have a normal appearance. There is no pathologically enlarged mesenteric or retroperitoneal adenopathy. A GJ tube is in place. The bowel loops are nondilated. There is no free fluid or free air. No acute osseous abnormality. Ureters and bladder are normal. There is no free air, loculated collection or adenopathy in the pelvis. IMPRESSION: 1. Patchy and consolidative opacities in the left lung base with more nodular opacities in the right middle lobe. Findings may represent areas of inflammatory or infectious process. Atelectasis can also contribute to this appearance. 2. Esophageal stent in place with inflammation and edema along the superior aspect of the stent. Small shoddy lymph nodes are visualized in the mediastinum. 3. Stent within the left mainstem bronchus. 4. Nonspecific hypoattenuating foci in the spleen. These areas may represent prior splenic infarcts. No free fluid or evidence of splenic rupture. 5. No acute abnormality in the abdomen and pelvis. Reviewed: Reviewed by Tx Departure Communication (Admissions) 1954--CALLED [facility]. IMAGES CLOUDED TO THEM. THEY WILL CALL BACK 2050--[facility] CALLED BACK. PT HAS BEEN ACCEPTED BY DR. POPEYE PARR, NO FURTHER RECOMMENDATIONS AT THIS TIME. BED ASSIGNMENT GIVEN 2054--ER STAFF NOW CALLING TO ARRANGE TRANSPORT. NO LOCAL OR REGIONAL GROUND EMS TRANSPORTATION AVAILABLE TONIGHT. AIR TRANSPORT SERVICES ARE BEING CONTACTED. 2129--NO AIR TRANSPORT AT THIS TIME DUE TO WEATHER. WILL ATTEMPT AGAIN AROUND MIDNIGHT. Impression Primary Impression: NEUTROPENIA WITH FEVER Additional Impressions: RECEIVING CHEMOTHERAPY Non-Hodgkin lymphoma Pneumonia Disposition: XF SHT-TRM HOSP Condition: Stable Transfer Transfer Reason: Exceeds level of care (MULTISPECIALTY SERVICES UNAVAILABLE HERE. ) Transfer Facility: [facility] Method of Transfer: Air Departure-Patient Inst. Referrals: EBONY JACKSON DO (PCP/Family) Primary Care Physician DYLAN SOTO DO Apr 11, 2023 18:28
[2023-04-11] MEDS ORDERED: ASPIRIN 81 MG CHEWABLE TABLET PO ONE (18:30)
[2023-04-11] MEDS ORDERED: IBUPROFEN 800 MG TABLET PO ONE (18:30)
[2023-04-11] MEDS ORDERED: ACETAMINOPHEN 500 MG TABLET PO ONE (18:30)
[2023-04-11] MEDS ORDERED: ONDANSETRON INJECTION 4 MG/2 ML (SDV) IVP ONE ×2 (18:30→23:15)
[2023-04-11] MEDS ORDERED: IBUPROFEN ORAL SUSPENSION 100MG/5ML UDC PO ONE (18:30)
[2023-04-11] MEDS ORDERED: ACETAMINOPHEN 325 MG/10.15 ML ORAL SOLN UDC PO ONE (18:30)
[2023-04-11 18:32] LABS: BASOPHILS % (AUTO) 4 % (0-10); EOSINOPHILS % (AUTO) 2 % (0-10); HEMATOCRIT 26 % (40-54); HEMOGLOBIN 8.4 g/dL (13.3-17.7); LYMPHOCYTES # (AUTO) 0.2 10^3/uL (1.0-4.0); LYMPHOCYTES % (AUTO) 40 % (12-44); MEAN CORPUSCULAR HEMOGLOBIN 28 pg (25-34); MEAN CORPUSCULAR HGB CONC 33 g/dL (32-36); MEAN CORPUSCULAR VOLUME 85 fL (80-99); MEAN PLATELET VOLUME 10.6 fL (9.0-12.2); MONOCYTES # (AUTO) 0.2 10^3/uL (0.0-1.0); MONOCYTES % (AUTO) 33 % (0-12); NEUTROPHILS # (AUTO) 0.1 10^3/uL (1.8-7.8); NEUTROPHILS % (AUTO) 22 % (42-75); PLATELET COUNT 109 10^3/uL (130-400)
[2023-04-11 18:34] LABS: WHITE BLOOD COUNT 0.6 10^3/uL (4.3-11.0)
[2023-04-11 18:47] LABS: PROTHROMBIN TIME PATIENT 13.3 SEC (12.2-14.7)
[2023-04-11 18:48] LABS: ALBUMIN 3.8 GM/DL (3.2-4.5); CHLORIDE 97 MMOL/L (98-107); POTASSIUM 4.4 MMOL/L (3.6-5.0); SODIUM 131 MMOL/L (135-145)
[2023-04-11 18:49] LABS: CALCIUM 8.8 MG/DL (8.5-10.1)
--- NOTE | 2023-04-11 18:49 | Diagnostic Imaging Report ---
EXAMINATION: Chest 1 view. HISTORY: Dyspnea. Non-Hodgkin's lymphoma. COMPARISON: 03/17/2023. FINDINGS: A right-sided port is seen with the tip overlying the mid SVC. The lung volumes are normal. No focal consolidation is seen. No large pleural effusion or pneumothorax is seen. The cardiomediastinal silhouette is normal in size and contour. Esophageal stent is in place. No acute osseous abnormality is seen. IMPRESSION: No acute pleuroparenchymal process. Dictated by: Dictated on workstation # [id number]
[2023-04-11 18:50] LABS: GLUCOSE 105 MG/DL (70-105); TOTAL PROTEIN 6.5 GM/DL (6.4-8.2)
[2023-04-11 18:51] LABS: CARBON DIOXIDE 23 MMOL/L (21-32)
[2023-04-11 18:52] LABS: BAND NEUTROPHILS 0 %; BASOPHILS % (MANUAL) 0 %; BILIRUBIN,TOTAL 1.1 MG/DL (0.1-1.0); EOSINOPHILS % (MANUAL) 0 %; LYMPHOCYTES % (MANUAL) 48 %; MONOCYTES % (MANUAL) 34 %; NEUTROPHILS % (MANUAL) 18 %; POLYCHROMASIA MODERATE
[2023-04-11 18:53] LABS: ANISOCYTOSIS MARKED; ERYTHROCYTE SEDIMENTATION RATE 1 MM/HR (0-15)
[2023-04-11 18:54] LABS: ALKALINE PHOSPHATASE 58 U/L (40-136); CREATININE SERUM 0.77 MG/DL (0.60-1.30); GFR ESTIMATED 113
[2023-04-11 18:55] LABS: BUN/CREATININE RATIO 22
[2023-04-11 18:57] LABS: ALANINE AMINOTRANSFERASE 18 U/L (0-55); MAGNESIUM 1.8 MG/DL (1.6-2.4)
[2023-04-11 18:58] LABS: LIPASE 8 U/L (8-78)
[2023-04-11] MEDS ORDERED: NS 100 ML (IVPB) BAG IV ONE (19:15)
[2023-04-11] MEDS ORDERED: IOHEXOL 350 MG/ML 100 ML (OMNIPAQUE 350) VIAL IV ONE (19:15)
[2023-04-11] MEDS ORDERED: NS IV 1000 ML 1,000 ML IV SCH (19:15)
[2023-04-11] MEDS ORDERED: HOLD METFORMIN - RECEIVED CONTRAST 20 ML VIAL IV SCH (19:15)
[2023-04-11 19:17] LABS: TSH (THYROID ANALYZER) 0.61 UIU/ML (0.35-4.94)
[2023-04-11 19:38] LABS: CLARITY,URINE CLEAR; COLOR,URINE ORANGE; GLUCOSE, URINE (UA) NEGATIVE (NEGATIVE); KETONES,URINE NEGATIVE (NEGATIVE); NITRITE,URINE NEGATIVE (NEGATIVE); PH,URINE 8.5 (5-9); PROTEIN,URINE 2+ (NEGATIVE)
[2023-04-11 19:39] LABS: BACTERIA,URINE NEGATIVE /HPF; BILIRUBIN,URINE 1+ (NEGATIVE); LEUKOCYTE ESTERASE ,URINE NEGATIVE (NEGATIVE); SQUAMOUS EPITHELIAL CELL,UR RARE /HPF; WBC,URINE RARE /HPF
[2023-04-11] MEDS ORDERED: fentaNYL INJECTION 100 MCG/2 ML VIAL IVP ONE ×3 (19:45→23:15)
--- NOTE | 2023-04-11 19:50 | Diagnostic Imaging Report ---
INDICATION: Fever. Cough. Nausea and vomiting. History of non-Hodgkin's lymphoma. Weakness. TECHNIQUE: CTA chest, abdomen and pelvis. Thin axial sections through the chest, abdomen and pelvis are obtained following intravenous contrast bolus. Multiplanar MIP images were reconstructed and reviewed. All CT scans use one or more of the following dose optimizing techniques: automated exposure control, MA and/or KvP adjustment based on patient size and exam type or iterative reconstruction. COMPARISON: None. CTA CHEST: No evidence of pulmonary embolus to the subsegmental pulmonary arteries. The heart size is within normal limits. No pericardial effusion is present. Esophageal stent is in place. There is also a stent within the left mainstem bronchus. Inflammation and edema are seen in the posterior mediastinum at the superior aspect of the esophageal stent. Small shoddy lymph nodes are seen in the mediastinum. No pathologically enlarged lymph nodes. Patchy and consolidative opacities are seen in the left lung base. Nodular opacities are seen in the right middle lobe. No pneumothorax is present. No central endobronchial obstructing lesion is identified. There is no pleural effusion. No acute osseous abnormality. CT ABDOMEN/PELVIS: Nonspecific hypoattenuating focus is seen in the spleen measuring 2.7 x 2.4 cm. Second similar area is seen more inferiorly measuring 3.3 x 2.4 cm. The liver, gallbladder, pancreas, adrenal glands and kidneys have a normal appearance. There is no pathologically enlarged mesenteric or retroperitoneal adenopathy. A GJ tube is in place. The bowel loops are nondilated. There is no free fluid or free air. No acute osseous abnormality. Ureters and bladder are normal. There is no free air, loculated collection or adenopathy in the pelvis. IMPRESSION: 1. Patchy and consolidative opacities in the left lung base with more nodular opacities in the right middle lobe. Findings may represent areas of inflammatory or infectious process. Atelectasis can also contribute to this appearance. 2. Esophageal stent in place with inflammation and edema along the superior aspect of the stent. Small shoddy lymph nodes are visualized in the mediastinum. 3. Stent within the left mainstem bronchus. 4. Nonspecific hypoattenuating foci in the spleen. These areas may represent prior splenic infarcts. No free fluid or evidence of splenic rupture. 5. No acute abnormality in the abdomen and pelvis. Dictated by: Dictated on workstation # [id number]
[2023-04-12] MEDS ORDERED: NS IV 1000 ML 1,000 ML IV SCH (00:15)
[2023-04-12] MEDS ORDERED: NOREPINEPHRINE 8 MG/250 ML 250 ML IV SCH ×2 (00:15)
[2023-04-12] MEDS ORDERED: fentaNYL INJECTION 100 MCG/2 ML VIAL IVP ONE (00:30)
[2023-04-12] MEDS ORDERED: RX-ALBUTEROL INHALER 8.5 GM HFA (PROAIR) IH STA (01:27)
[2023-04-12 01:33] VITALS: BP 99/69
== END 2023-04-12 01:36 | disposition short-term general hospital (02) ==
LOC: EDUNIT# 17:49 → ER 17:51
DX: J18.9 Pneumonia, unspecified organism (principal); C85.90 Non-Hodgkin lymphoma, unspecified, unspecified site; Z20.822 Contact with and (suspected) exposure to COVID-19; Z79.899 Other long term (current) drug therapy
CPT/HCPCS: 36415; 71045; 71275; 74177; 80053; 81000; 83605; 83690; 83735; 83874; 83880; 84443; 84484; 85007; 85027; 85610; 85652; 85730; 86141; 87040; 87088; 87636; 93005; 93041; 99291

== ENCOUNTER → 2023-05-20 | Outpatient (CLI) | payer OTHER ==
--- NOTE | 2023-05-20 14:56 | Diagnostic Imaging Report ---
EXAMINATION: CT chest without contrast. TECHNIQUE: Multiple contiguous axial images were obtained through the chest without the use of intravenous contrast. All CT scans use one or more of the following dose optimizing techniques: automated exposure control, MA and/or KvP adjustment based on patient size and exam type or iterative reconstruction. HISTORY: Empyema COMPARISON: 04/11/2023 FINDINGS: There is no edema or pneumonia. No pleural effusion. No pneumothorax. No suspicious nodules. There is mild left base atelectasis or scarring. There is a stent in the left mainstem bronchus. There is mild wall thickening of the adjacent esophagus, improved from prior exam. The esophageal stent has been removed. No mediastinal fluid collection. There is no axillary or supraclavicular lymphadenopathy. There is no mediastinal lymphadenopathy. A right-sided portacatheter is present. Heart size is normal. There are mild coronary artery calcifications. No pericardial effusion. Aorta is normal in caliber. Limited views of the upper abdomen show a percutaneous gastric tube There are no suspicious osseus lesions. IMPRESSION: 1. The esophageal stent has been removed and there is improved thickening of the esophagus. The left mainstem bronchus stent is unchanged. There is atelectasis or scarring in the left lower lobe but no pleural effusion or pneumonia. Dictated by: Dictated on workstation # [id number]
== END ==
LOC: RAD 12:25
PROVIDERS: ATTEND Internal Medicine
DX: J98.11 Atelectasis (principal)
CPT/HCPCS: 71250